=== PATIENT | female | born 1980 | race Caucasian/White ===

== ENCOUNTER 2018-02-17 11:29 | Emergency (ER) | payer OTHER ==
--- NOTE | 2018-02-17 11:46 | PDOC ---
History of Present Illness - General Chief Complaint: Pain Stated Complaint: RT SIDE RIB PAIN Time Seen by Provider: 02/17/18 11:33 - History of Present Illness Initial Comments: 02/17/18 11:41 37 F with no PMH presents to ED with R ribcage pain. Pt states that she sneezed hard yesterday and felt sudden pain in her R chest wall. Denies any F/C. States that it hurts to take a deep breath but denies any SOB. Denies L sided chest pain. Denies F/C or recent illness. Denies leg swelling. No recent travel/ immobilization. No h/o DVT/PE. Not on OCP or estrogen. Past History - Past Medical History Allergies/Adverse Reactions: Allergies Allergy/AdvReac Type Severity Reaction Status Date / Time No Known Drug Allergies Allergy Verified 02/17/18 11:31 Home Medications: Ambulatory Orders Oxycodone HCl/Acetaminophen [Percocet 5-325 mg Tablet] 1 tab PO TID PRN #9 tablet MDD 3 tabs 02/17/18 Anemia: No Asthma: No Cancer: No Cardiac Disorders: No CVA: No COPD: No CHF: No DVT: Yes (BILAT) Dementia: No Diabetes: No GI Disorders: No Disorders: No HTN: No Hypercholesterolemia: No Liver Disease: No Seizures: No Thyroid Disease: No - Reproductive History Cervical CA: No Dysfunctional Uterine Bleeding: No Ectopic : No Endometrial CA: No Polycystic Ovaries: No Therapeutic (s) & number: No Tubal Ligation: No - Suicide/Smoking/Psychosocial Hx Smoking Status: No Smoking History: Never smoked Number of Cigarettes Smoked Daily: 0 Hx Alcohol Use: No Drug/Substance Use Hx: No Substance Use Type: None Hx Substance Use Treatment: No Review of Systems - Review of Systems Comments:: 02/17/18 11:45 "GENERAL/CONSTITUTIONAL: No fever or chills. No weakness. HEAD, EYES, EARS, NOSE AND THROAT: No change in vision. No ear pain or discharge. No sore throat. CARDIOVASCULAR: + R sided chest wall pain RESPIRATORY: No cough, wheezing, or hemoptysis. GASTROINTESTINAL: No nausea, vomiting, diarrhea or constipation. GENITOURINARY: No dysuria, frequency, or change in urination. MUSCULOSKELETAL: No joint or muscle swelling or pain. No neck or back pain. SKIN: No rash NEUROLOGIC: No headache, vertigo, loss of consciousness, or change in strength/ sensation. ENDOCRINE: No increased thirst. No abnormal weight change. HEMATOLOGIC/LYMPHATIC: No anemia, easy bleeding, or history of blood clots. ALLERGIC/IMMUNOLOGIC: No hives or skin allergy. " *Physical Exam - Physical Exam Comments: 02/17/18 11:45 "GENERAL: Awake, alert, and fully oriented, in no acute distress HEAD: No signs of trauma EYES: PERRLA, EOMI, sclera anicteric, conjunctiva clear ENT: Auricles normal inspection, hearing grossly normal, nares patent, oropharynx clear without exudates. Moist mucosa NECK: Nontender, no stepoffs, Normal ROM, supple, no lymphadenopathy, JVD, or masses LUNGS: Breath sounds equal, clear to auscultation bilaterally. No wheezes, and no crackles CHEST: + tenderness lateral R sided chest wall, no crepitus or deformity HEART: Regular rate and rhythm, normal S1 and S2, no murmurs, rubs or gallops ABDOMEN: Soft, nontender, normoactive bowel sounds. No guarding, no rebound. No masses EXTREMITIES: Normal range of motion, no edema. No clubbing or cyanosis. No cords, erythema, or tenderness NEUROLOGICAL: Cranial nerves II through XII intact. 5/5 strength and sensation in all extremities, Normal speech, normal gait, normal cerebellar function SKIN: Warm, Dry, normal turgor, no rashes or lesions noted. " ED Treatment Course - RADIOLOGY Radiology Studies Ordered: Category Date Time Status CHEST PA & LAT [RAD] Stat Radiology 02/17/18 11:40 Ordered RIBS RIGHT SIDE [RAD] Stat Radiology 02/17/18 11:40 Ordered Medical Decision Making - Medical Decision Making 02/17/18 11:46 37 F with R sided chest wall pain after sneezing yesterday. Possible rib fx vs muscle strain. Will r/o PTX with x-ray. Pt with normal vitals, no DVT risk factors. PERC 0. ACS is extremely unlikely as pt's pain is R sided and very atypical, reproducible with palpation. - UPT - Rib/chest XR - Pain control 02/17/18 13:54 XR negative for acute fx or PTX Pt reassessed - now with significantly improved pain s/p percocet. Able to breathe more comfortably. Pt is well appearing, with normal vitals. Clinically stable for DC at this time. I discussed the physical exam findings, ancillary test results and final diagnoses with the patient. I answered all of the patient's questions. The patient was satisfied with the care received and felt comfortable with the discharge plan and treatment plan. The patient agrees to follow up with the primary care physician within 24-72 hours. *DC/Admit/Observation/Transfer Diagnosis at time of Disposition: Rib pain - Discharge Dispostion Disposition: HOME - Prescriptions Prescriptions: Oxycodone HCl/Acetaminophen [Percocet 5-325 mg Tablet] 1 tab PO TID PRN #9 tablet MDD 3 tabs PRN Reason: Pain - Referrals - Patient Instructions Printed Discharge Instructions: DI for Rib Contusion Additional Instructions: Use the incentive spirometer as directed to prevent lung infection. Take motrin or tylenol as needed for pain. If needed, you can take one percocet for severe pain. Do not use more than directed. If you experience worsening chest pain, difficulty breathing, fevers, or any other concerning symptoms, return to the ER immediately. Otherwise, follow up with your primary doctor within 1 week for a re-evaluation. - Post Discharge Activity Forms/Work/School Notes: Back to Work - Attestations Physician Attestion: 02/17/18 13:56 I, Dr. Max Agee MD, attest that this document has been prepared under my direction and personally reviewed by me in its entirety. I further attest, that it accurately reflects all work, treatment, procedures and medical decision -making performed by me.
[2018-02-17 12:31] VITALS: BP 132/108; PULSE 70; TEMP 99; BMI 29.2
== END 2018-02-17 14:01 | disposition home or self-care (01) ==
LOC: FER 11:29
DX: R07.81 Pleurodynia (principal); Z86.718 Personal history of other venous thrombosis and embolism
CPT/HCPCS: 71046-TC-FY; 71101-TC-RT-FY; 84703; 99282-25

== ENCOUNTER 2020-01-09 17:44 | Emergency (ER) | payer OTHER ==
[2020-01-09 18:37] VITALS: BP 114/75; PULSE 79; TEMP 98.3; BMI 31.4
--- NOTE | 2020-01-09 18:42 | PDOC ---
Documentation entered by Melisa Mcconnell SCRIBE, acting as scribe for Eduardo Rosario MD. Eduardo Rosario MD: This documentation has been prepared by the scribeJayesh Maria, SCRIBE, under my direction and personally reviewed by me in its entirety. I confirm that the documentation accurately reflects all work, treatment, procedures, and medical decision making performed by me. History of Present Illness - General Chief Complaint: Injury Stated Complaint: FELL DOWN STAIRS, 4 MONTHS History Source: Patient - History of Present Illness Initial Comments: 01/09/20 18:30 The patient is a 39 year old, 4 months , (A3) female with a significant past medical history of DVT who presents to the emergency department s/p mechanical fall. As per patient, she states was doing laundry, slipped down 3 steps and landed on her buttock. Patient endorses left buttock pain and left lower quadrant pain prompting her to the emergency room. Denies loss of consciousness.Denies trauma to her head. Denies cramping. Denies vaginal bleeding. Denies any other injuries. Past History - Past Medical History Allergies/Adverse Reactions: Allergies Allergy/AdvReac Type Severity Reaction Status Date / Time No Known Drug Allergies Allergy Verified 01/09/20 17:45 Home Medications: Ambulatory Orders NK [No Known Home Medication] 01/09/20 Anemia: No Asthma: No Cancer: No Cardiac Disorders: No CVA: No COPD: No CHF: No DVT: Yes (BILATERAL LEGS 2002) Dementia: No Diabetes: No GI Disorders: No Disorders: No HTN: No Hypercholesterolemia: No Liver Disease: No Seizures: No Thyroid Disease: No - Reproductive History Cervical CA: No Dysfunctional Uterine Bleeding: No Ectopic : No Endometrial CA: No Polycystic Ovaries: No Therapeutic (s) & number: No Tubal Ligation: No - Immunization History Immunization Up to Date: Yes - Psycho Social/Smoking Cessation Hx Smoking Status: No Smoking History: Unknown if ever smoked Have you smoked in the past 12 months: No Number of Cigarettes Smoked Daily: 0 Hx Alcohol Use: No Drug/Substance Use Hx: No Substance Use Type: None Hx Substance Use Treatment: No Review of Systems - Review of Systems Able to Perform ROS?: Yes Comments:: 01/09/20 18:31 A complete review of 10 out of 10 review of systems is taken and is negative apart from what is previously mentioned below and in the HPI. *Physical Exam - Physical Exam 01/09/20 18:31 Vitals: Triage Vital signs reviewed General Appearance: no acute distress, well nourished well developed, Head: Atraumatic, normocephalic Eyes: Pupils equal reactive round, extraocular movement intact Neck: Supple;No Nuchal rigidity Chest Wall: Nontender Cardiac: Regular rate and rhythm, no murmurs, no rubs, no gallops, Lungs: Clear to auscultation bilateral, good air movement bilaterally, Abdomen: Soft, nondistended, normal bowel sounds, nontender to palpation Extremities:+Left buttock pain. 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 Feels the baby moving Her examination was notable for left buttock pain no midline back tenderness or neurologic examination was nonfocal she was neurovascularly intact distally A bedside [id number] ultrasound was performed which demonstrated good movement and heart rate approximately 150 Patient was offered a formal ultrasound which she felt reassured seeing the baby moving she would prefer to follow-up tomorrow with her INSURANCE CLAIM AUDITOR given that she is 4 months this is reasonable at this point Findings, the need for follow-up and strict return instructions discussed with patient. Discharge - Discharge Information Problems reviewed: Yes Clinical Impression/Diagnosis: Back pain Qualifiers: Back pain location: low back pain Chronicity: acute Back pain laterality: left Sciatica presence: without sciatica Qualified Code(s): M54.5 - Low back pain Condition: Fair Disposition: HOME - Admission No - Follow up/Referral - Patient Discharge Instructions Patient Printed Discharge Instructions: Low Back Pain Additional Instructions: Ice low back 20 minutes on 20 minutes off. Okay to take [id number] Tylenol as directed on package. Return to the emergency department immediately for any severe abdominal pain cramping heavy vaginal bleeding Tomorrow morning follow-up with your INSURANCE CLAIM AUDITOR - Post Discharge Activity
== END 2020-01-09 18:55 | disposition home or self-care (01) ==
LOC: FER 17:44
DX: M54.5 Low back pain (principal); O26.892 Other specified pregnancy related conditions, second trimester; Z86.718 Personal history of other venous thrombosis and embolism
CPT/HCPCS: 99284-25

== ENCOUNTER 2020-05-31 02:20 | Inpatient (IN) | payer OTHER ==
[2020-05-31] MEDS ORDERED: OXYTOCIN 30 UNITS in 0.9% NS 30 UNIT/500 ML INFUS.BAG IVPB SCH (03:00)
[2020-05-31] MEDS: ELECTROLYTE-148 SOLN 1,000 ML IV SCH (03:00)
[2020-05-31 03:32] VITALS: BMI 36.6
[2020-05-31 03:56] LABS: INR 0.94 (0.83-1.09); PROTHROMBIN TIME (PATIENT) 11.1 SEC (9.7-13.0)
[2020-05-31 03:59] LABS: ACTIVATED PTT 24.3 SECONDS (25.2-36.5)
[2020-05-31 04:12] LABS: BASO % 1.2 % (0-2.0); BLOOD UREA NITROGEN 8.3 mg/dL (7-18); CALCIUM 8.6 mg/dL (8.5-10.1); CREATININE 0.5 mg/dL (0.55-1.3); EOS % 1.1 % (0-4.5); HEMATOCRIT 37.3 % (32.4-45.2); HEMOGLOBIN 12.6 GM/dL (10.7-15.3); LYMPH % 27.9 % (8-40); MCH 32.3 pg (25.7-33.7); MCHC 33.9 g/dl (32.0-36.0); MEAN CELL VOLUME 95.2 fl (80-96); MEAN PLT VOLUME 10.5 fl (7.5-11.1); MONO % 8.8 % (3.8-10.2); PLATELET COUNT 191 K/MM3 (134-434); POTASSIUM 4.8 mmol/L (3.5-5.1); RBC 3.92 M/mm3 (3.60-5.2); RDW 13.3 % (11.6-15.6); WHITE BLOOD COUNT 8.7 K/mm3 (4.0-10.0)
[2020-05-31] MEDS ORDERED: OXYTOCIN 30 UNITS in 0.9% NS 30 UNIT/500 ML INFUS.BAG IVPB ONE (04:17)
--- NOTE | 2020-05-31 06:27 | HP ---
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 Weeks Gestation by Dates: 38.6 ...EDC by Dates: 06/08/20 ...EDC by Sono: 06/17/20 Heme/Onc: Yes: Other (declines) Infectious Disease: Yes: Other (declines) Endocrine: Yes: Diabetes Mellitus (diet controlled) - Past Surgical History Past Surgical History: Yes: None Hx Myomectomy: No Hx Transabdominal Cerclage: No - Smoking History Smoking history: Never smoked Have you smoked in the past 12 months: No Aproximately how many cigarettes per day: 0 - Alcohol/Substance Use Hx Alcohol Use: No - Social History Usual Living Arrangement: Yes: With Spouse History of Recent Travel: No Home Medications - Allergies Allergies/Adverse Reactions: Allergies Allergy/AdvReac Type Severity Reaction Status Date / Time No Known Drug Allergies Allergy Verified 05/31/20 03:32 - Home Medications Home Medications: Ambulatory Orders Aspirin 81 mg PO DAILY 04/25/20 Folic Acid 1 mg PO TID 04/25/20 Vitamins (Sjr) - 1 tab PO DAILY 04/25/20 Review of Systems - Review of Systems Constitutional: reports: No Symptoms Eyes: reports: No Symptoms HENT: reports: No Symptoms Neck: reports: No Symptoms Cardiovascular: reports: No Symptoms Respiratory: reports: No Symptoms Gastrointestinal: reports: No Symptoms Genitourinary: reports: No Symptoms Breasts: reports: No Symptoms Reported Musculoskeletal: reports: No Symptoms Integumentary: reports: No Symptoms Neurological: reports: No Symptoms Endocrine: reports: No Symptoms Hematology/Lymphatic: reports: No Symptoms Psychiatric: reports: No Symptoms Physical Exam - Maternity Vital Signs: Vital Signs Temperature 98.2 F 05/31/20 05:00 Pulse Rate 72 05/31/20 05:00 Respiratory Rate 20 05/31/20 05:00 Blood Pressure 114/67 05/31/20 05:00 O2 Sat by Pulse Oximetry (%) 100 05/31/20 02:20 Constitutional: Yes: Obese Eyes: Yes: WNL HENT: Yes: WNL Neck: Yes: WNL Cardiovascular: Yes: WNL Lungs: Normal air movement Breast(s): Yes: WNL - Abdominal Exam/OB Fundal Height: 38 Number of Fetuses: Single Presentation: Vertex Contractions: No Regularity: Irritability Intensity: Unaware Monitor Mode: External Heart Rate Location: [facility] Category: I Accelerations: Non-Uniform Decelerations: None - Vaginal Exam/OB Vaginal Bleeding: No Speculum Exam: No Dilatation (cm): 2 cm Effacement (%): 80 Amniotic Membrane Status: Ruptured Nitrazine Test: Positive Amniotic Fluid: Yes: Clear Presentation: Vertex/Position Station: -2 - Physical Exam Musculoskeletal: Yes: WNL Extremities: Yes: WNL Edema: Yes Edema: LLE: Trace, RLE: Trace Deep Tendon Reflex Grade: Normal +2 ...Motor Strength: WNL Psychiatric: Yes: WNL - Labs Lab Results: CBC, BMP 05/31/20 03:00 05/31/20 03:00 Hemorrhage Risk Assessment - Risk Factors Medium Risk Factors: Yes: None High Risk Factors: Yes: None Risk Score: 1 Risk Level: Medium Risk Problem List - Problems (1) with 38 completed weeks gestation Code(s): Z3A.38 - 38 WEEKS GESTATION OF (2) PROM (premature rupture of membranes) Code(s): O42.90 - SERG ROM, 7TH0 BETW RUPT & ONST LABR, UNSP WEEKS OF GEST Qualifiers: PROM onset of labor timing: onset of labor within 24 hours of rupture (3) AMA (advanced maternal age) multigravida 35+ Code(s): O09.529 - SUPERVISION OF ELDERLY MULTIGRAVIDA, UNSPECIFIED TRIMESTER Qualifiers: Trimester: third trimester Qualified Code(s): O09.523 - Supervision of elderly multigravida, third trimester (4) Gestational diabetes Code(s): O24.419 - GESTATIONAL DIABETES MELLITUS IN , UNSP CONTROL Qualifiers: Gestational diabetes mellitus control: diet-controlled Trimester: third trimester Qualified Code(s): O24.410 - Gestational diabetes mellitus in , diet controlled (5) Gestational hypertension Code(s): O13.9 - GESTATIONAL HTN W/O SIGNIFICANT PROTEINURIA, UNSP TRIMESTER Qualifiers: Trimester: third trimester Qualified Code(s): O13.3 - Gestational [-induced] hypertension without significant proteinuria, third trimester Assessment/Plan admit for vaginal delivery, pitocin discussed , risks explained FHM monitor B.S monitor BP revaluate
[2020-05-31] MEDS ORDERED: ELECTROLYTE-148 SOLN 1,000 ML IV SCH (06:30)
[2020-05-31] MEDS ORDERED: BUTORPHANOL TARTRATE 1 MG/ML VIAL IVPB ONE (07:15)
[2020-05-31] MEDS ORDERED: PROMETHAZINE HCL 25 MG/1 ML VIAL IVPB ONE (07:15)
[2020-05-31] MEDS ORDERED: PROMETHAZINE HCL 25 MG/1 ML VIAL ONE (07:40)
[2020-05-31] MEDS ORDERED: BUTORPHANOL TARTRATE 1 MG/ML VIAL ONE ×2 (07:40)
[2020-05-31 09:56] LABS: POC NITRAZINE POS
[2020-05-31] MEDS ORDERED: PCA PUMP NR ONE (10:26)
[2020-05-31] MEDS ORDERED: FENTANYL/BUPIVACAINE/NS/PF - PCEA - 50 ML DISP.SYRIN EP ONE ×2 (10:26→15:04)
[2020-05-31] MEDS ORDERED: NALOXONE HCL 0.4 MG/ML VIAL IVPUSH PRN (10:26)
[2020-05-31] MEDS ORDERED: BUPIVACAINE HCL/PF 0.25% (2.5MG/ML) 10 ML VIAL ONE ×2 (10:28→15:34)
[2020-05-31] MEDS ORDERED: FENTANYL/BUPIVACAINE/NS/PF - PCEA - 50 ML DISP.SYRIN EP SCH (10:30)
--- NOTE | 2020-05-31 12:36 | PD.OB.PROG ---
Past Medical History - Primary Care Physician PCP:: Lg Brody Documenting Provider Type: Laborist - Admission Chief Complaint: none History Source: Patient Limitations to Obtaining History: No Limitations - Nursing Documentation Maternal Triage Index: Maternal Triage Index ( Priority 4, Non-urgent MFTI) Hemorrhage Risk Assessment: Risk Level Low Risk High Level Risk Factors for None Hemorrhage Medium Level Risk Factors for None of the above Hemorrhage Low Level Risk Factors for Angelo Pregnaancy Hemorrhage Nursing Documentation Reviewed: Yes - Past Medical History ...: 5 ...Para: 1 ...Term: 0 ...: 1 ...Spon : 3 ...Induced : 0 ...Living Children: 1 ...Multiple Gestation: 0 ...LMP: 09/02/19 ... Weeks Gestation by Dates: 38.6 ...EDC by Dates: 06/08/20 ...EDC by Sono: 06/17/20 - Past Surgical History Past Surgical History: Yes: None - Smoking History Smoking history: Never smoked Have you smoked in the past 12 months: No Aproximately how many cigarettes per day: 0 - Alcohol/Substance Use Hx Alcohol Use: No - Social History History of Recent Travel: No Physical Exam - Obstetrical Vital Signs: Vital Signs Temperature 98.3 F 05/31/20 10:00 Pulse Rate 79 05/31/20 11:45 Respiratory Rate 17 05/31/20 11:45 Blood Pressure 106/71 05/31/20 11:45 O2 Sat by Pulse Oximetry (%) 98 05/31/20 11:45 - Labs Lab Results: CBC, BMP 05/31/20 03:00 05/31/20 03:00 Assessment/Plan called by nurse upon PMD request to see this pt. following decel while being repositioned. pt. comfortable with epidural . no complaints. vss -af last fs: 99 at 10am fhr: 140. no decels x past 10 min. mod variability. prior to this pt had two variable decels (at time of repositioning per nurse). pt. was being repositioned due to some lates noted w lower BP following epidural placement. toco: uc's not registering as well on side, but are approx. q 3-4 min ve: def at this time (was 5 cm dilated at time of last exam ~ 11am per nurse) a/p 39 y/o P1 GDM on diet iup at term w srom early this am admitted and started on pitocin. received analgesia and then epidural. due to FHR characteristics (described above) Pitocin was stopped, iv bolus given and pt. repositioned. FHR responding to intrauterine resusc. cont. close monitoring. d/w Dr. Brody will sign out to next laborist as well.
--- NOTE | 2020-05-31 14:11 | PN ---
Progress Note (short form) - Note Progress Note: cx 6 cm 80 vx -1, fhr cat 1, irregular contraction , pitocin off, will start pitocin again and monitor FH Problem List - Problems (1) with 38 completed weeks gestation Code(s): Z3A.38 - 38 WEEKS GESTATION OF (2) PROM (premature rupture of membranes) Code(s): O42.90 - SERG ROM, 7TH0 BETW RUPT & ONST LABR, UNSP WEEKS OF GEST Qualifiers: PROM onset of labor timing: onset of labor within 24 hours of rupture (3) AMA (advanced maternal age) multigravida 35+ Code(s): O09.529 - SUPERVISION OF ELDERLY MULTIGRAVIDA, UNSPECIFIED TRIMESTER Qualifiers: Trimester: third trimester Qualified Code(s): O09.523 - Supervision of elderly multigravida, third trimester (4) Gestational diabetes Code(s): O24.419 - GESTATIONAL DIABETES MELLITUS IN , UNSP CONTROL Qualifiers: Gestational diabetes mellitus control: diet-controlled Trimester: third trimester Qualified Code(s): O24.410 - Gestational diabetes mellitus in , diet controlled (5) Gestational hypertension Code(s): O13.9 - GESTATIONAL HTN W/O SIGNIFICANT PROTEINURIA, UNSP TRIMESTER Qualifiers: Trimester: third trimester Qualified Code(s): O13.3 - Gestational [-induced] hypertension without significant proteinuria, third trimester
[2020-05-31] MEDS ORDERED: LIDOCAINE HCL 1% PRESERVATIVE FREE - 30ML VIAL ONE (17:33)
[2020-05-31] MEDS ORDERED: OXYTOCIN 20 UNITS in 0.9% NS 20 UNIT/1,000 ML INFUS.BAG IV ONE (17:33)
[2020-05-31] MEDS ORDERED: BENZOCAINE 28 GM HEMORRHOIDAL OINTMENT TP PRN (17:50)
[2020-05-31] MEDS ORDERED: BISACODYL 10 MG SUPP.RECT RC PRN (17:50)
[2020-05-31] MEDS ORDERED: BENZOCAINE 20% 57 GM BOTTLE TP PRN (17:50)
[2020-05-31] MEDS ORDERED: WITCH HAZEL 50% (TUCKS) 40 PAD/JAR PAD TP PRN (17:50)
[2020-05-31] MEDS ORDERED: METHYLERGONOVINE MALEATE 0.2 MG/1 ML AMP IM PRN (17:50)
--- NOTE | 2020-05-31 17:54 | PN ---
Delivery - Delivery Vaginal Delivery: Spontaneous Type of Anesthesia: Local, Epidural Episiotomy/Laceration: 1st degree (cx full, head delivered , nasopharynx suctioned , cord around neck 1 ,reduced , ant. and post, shoulder with no difficulty , live baby boy, 9/9 , placeta complete, 2 cm rt vaginal wall eparied with 2 interupted suture of 2 chromic , ebl 300cc , baby bonded with MOM , declined breast feeding, no complication) Delivery, Single - 1 Minute Total Score: 9 5 Minutes Total Score: 9 - [place] Feeding Plan Initial Plan: Elected not to breastfeed exclusively throughout hospitalization
[2020-05-31 18:00] LABS: CORD BASE EXCESS -4.2 mmol/L (0-2); CORD HCO3 23.8 mmHg (20-29); CORD PCO2 54.3 mmHg (30-78); CORD pH 7.26 (7.14-7.44)
[2020-05-31] MEDS ORDERED: D5W-LR W/ 20 UNITS OXYTOCIN 1,000 ML IV SCH (18:00)
[2020-05-31] MEDS ORDERED: OXYTOCIN 20 UNITS in 0.9% NS 20 UNIT/1,000 ML INFUS.BAG IV SCH (18:00)
[2020-05-31 18:01] LABS: CORD BASE EXCESS -1.5 mmol/L (0-2); CORD HCO3 24.5 mmHg (20-29); CORD PCO2 45.9 mmHg (30-78); CORD pH 7.346 (7.14-7.44)
[2020-05-31] MEDS: IBUPROFEN 600 MG TABLET (FP) PO PRN ×2 (19:26→23:48)
[2020-05-31] MEDS: ACETAMINOPHEN 325 MG TABLET (FP) PO PRN ×2 (19:26→23:47)
[2020-05-31] MEDS ORDERED: IBUPROFEN 600 MG TABLET (FP) PO ONE (19:28)
[2020-05-31] MEDS ORDERED: ACETAMINOPHEN 325 MG TABLET (FP) ONE (19:28)
[2020-06-01] MEDS: ELECTROLYTE-148 SOLN 1,000 ML IV SCH (03:29)
[2020-06-01] MEDS: IBUPROFEN 600 MG TABLET (FP) PO PRN ×2 (06:40→09:59)
[2020-06-01] MEDS: ACETAMINOPHEN 325 MG TABLET (FP) PO PRN ×2 (06:40→09:59)
[2020-06-01] MEDS ORDERED: FERROUS SO4 325 MG TABLET (FP) PO SCH (08:00)
[2020-06-01 08:24] LABS: BASO % 0.6 % (0-2.0); EOS % 0.9 % (0-4.5); HEMATOCRIT 35.9 % (32.4-45.2); HEMOGLOBIN 11.9 GM/dL (10.7-15.3); LYMPH % 16.1 % (8-40); MCH 31.4 pg (25.7-33.7); MCHC 33.2 g/dl (32.0-36.0); MEAN CELL VOLUME 94.7 fl (80-96); MEAN PLT VOLUME 9.6 fl (7.5-11.1); MONO % 5.9 % (3.8-10.2); NEUT % 76.5 % (42.8-82.8); PLATELET COUNT 204 K/MM3 (134-434); RBC 3.79 M/mm3 (3.60-5.2); RDW 13.4 % (11.6-15.6); WHITE BLOOD COUNT 13.5 K/mm3 (4.0-10.0)
[2020-06-01] MEDS ORDERED: PRENATAL VITAMINS W/ FOLIC ACID TABLET (FP) PO SCH (10:00)
--- NOTE | 2020-06-01 10:57 | DS ---
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: Vital Signs Temperature 98.3 F 05/31/20 21:51 Pulse Rate 90 05/31/20 21:51 Respiratory Rate 20 05/31/20 21:51 Blood Pressure 122/73 05/31/20 21:51 O2 Sat by Pulse Oximetry (%) 100 05/31/20 19:15 Constitutional: Yes: Well Nourished, No Distress, Calm Eyes: Yes: WNL, Conjunctiva Clear, EOM Intact HENT: Yes: WNL, Atraumatic, Normocephalic Neck: Yes: WNL, Supple, Trachea Midline Cardiovascular: Yes: WNL, Regular Rate and Rhythm Respiratory: Yes: WNL, Regular, CTA Bilaterally Gastrointestinal: Yes: WNL ...Rectal Exam: Yes: WNL Renal/: Yes: WNL ....Post : Yes: Uterus firm, Uterus non-tender, Slight lochia rubra Breast(s): Yes: WNL Musculoskeletal: Yes: WNL Extremities: Yes: WNL Edema: No Integumentary: Yes: WNL Neurological: Yes: WNL, Alert, Oriented ...Motor Strength: WNL Psychiatric: Yes: WNL, Alert, Oriented Labs: CBC, BMP 06/01/20 08:05 05/31/20 03:00 Delivery - Delivery Vaginal Delivery: Spontaneous Type of Anesthesia: Local, Epidural Episiotomy/Laceration: 1st degree (cx full, head delivered , nasopharynx suctioned , cord around neck 1 ,reduced , ant. and post, shoulder with no difficulty , live baby boy, 9/9 , placeta complete, 2 cm rt vaginal wall eparied with 2 interupted suture of 2 chromic , ebl 300cc , baby bonded with MOM , declined breast feeding, no complication) EBL (cc): 300 Delivery, Single - Stages of Labor Date 1st Stage Initiatied: 05/31/20 Time 1st Stage Initiated: 07:45 Date 2nd Stage Initiated: 05/31/20 Time 2nd Stage Initiated: 17:15 Date of Delivery: 05/31/20 Time of Delivery: 17:31 Time Placenta Delivered: 17:35 Placenta: Yes: Spontaneous - Condition of Infant Oral And Maxillofacial Surgery Resident/Analog Ic Design Architect Present: No Gender: Male Weight: 6 lb 5 oz Position: Left, OA Total Hours ROM (Hrs/Mins): 15Hrs/25Mins - 1 Minute Total Score: 9 5 Minutes Total Score: 9 - [place] Feeding Plan Initial Plan: Elected not to breastfeed exclusively throughout hospitalization Discharge Summary Reason For Visit: LABOR Current Active Problems AMA (advanced maternal age) multigravida 35+ (Acute) Gestational diabetes (Acute) Gestational hypertension (Acute) PROM (premature rupture of membranes) (Acute) with 38 completed weeks gestation (Acute) Procedures: Principal: Hospital Course: no complication Plan of Treatment: follow up [facility] care 4 weeks, do 75 gm GCT 6 weeks pp, if fever, heavy vaginal bleeding, pain call low carb diet Condition: Good - Instructions Diet, Activity, Other Instructions: regular diet, no intercourse, follow up [facility] care 4 weeks, if fever, heavy vaginal bleeding , pain call MD Referrals: Lg Brody MD [Staff Physician] - Disposition: HOME - Home Medications Comprehensive Discharge Medication List: Ambulatory Orders Aspirin 81 mg PO DAILY 04/25/20 Folic Acid 1 mg PO TID 04/25/20 Vitamins (Sjr) - 1 tab PO DAILY 04/25/20 Ibuprofen [Motrin -] 600 mg PO QID #28 tablet 06/01/20
[2020-06-01 12:30] VITALS: BP 111/78; PULSE 86; TEMP 98
[2020-06-01] MEDS ORDERED: SENNOSIDES/DOCUSATE COMBO (SENNA PLUS) TABLET (UD) PO PRN (22:00)
== END 2020-06-01 15:00 | disposition home or self-care (01) | DRG 560 ==
LOC: JLDR 02:20 → J3W 21:38
PROVIDERS: ADMIT Obstetrics & Gynecology; ATTEND Obstetrics & Gynecology
PROC: 10E0XZZ Delivery of Products of Conception, External Approach (ICD-10-PCS; principal; 2020-05-31)
PROC: 0HQ9XZZ Repair Perineum Skin, External Approach (ICD-10-PCS; 2020-05-31)
DX: O42.02 Full-term premature rupture of membranes, onset of labor within 24 hours of rupture (principal); O24.420 Gestational diabetes mellitus in childbirth, diet controlled; O13.3 Gestational [pregnancy-induced] hypertension without significant proteinuria, third trimester; O70.0 First degree perineal laceration during delivery; O69.1XX0 Labor and delivery complicated by cord around neck, with compression, not applicable or unspecified; Z3A.38 38 weeks gestation of pregnancy; Z37.0 Single live birth
CPT/HCPCS: 36415; 36600; 59409; 80048; 82803; 82962; 83986-QW; 85025; 85610; 85730; 86762; 86780; 86850; 86900; 86901; 87340; U0003

== ENCOUNTER 2022-12-01 21:27 | Emergency (ER) | payer OTHER ==
[2022-12-01 21:37] VITALS: BP 152/94; PULSE 86; RESP 20; TEMP 98.2; BMI 32.1
[2022-12-02] MEDS ORDERED: SODIUM CHLORIDE 1,000 ML IV STA (00:29)
[2022-12-02] MEDS ORDERED: KETOROLAC TROMETHAMINE 30 MG/1 ML VIAL IVPUSH ONE (00:39)
[2022-12-02] MEDS ORDERED: KETOROLAC TROMETHAMINE 30 MG/1 ML VIAL IM ONE (00:59)
[2022-12-02] MEDS ORDERED: KETOROLAC TROMETHAMINE 30 MG/1 ML VIAL ONE (01:31)
== END 2022-12-02 03:00 | disposition left against medical advice (07) ==
LOC: JER 21:27
DX: M79.605 Pain in left leg (principal); R51.9 Headache, unspecified
CPT/HCPCS: 70450-TC; 93971-TC; 99285-25

== ENCOUNTER 2023-05-04 22:22 | Emergency (ER) | payer OTHER ==
[2023-05-04 22:26] VITALS: BP 152/79; PULSE 86; RESP 17; TEMP 97.6; BMI 32.1
== END 2023-05-05 01:45 | disposition home or self-care (01) ==
LOC: JER 22:22
DX: M79.604 Pain in right leg (principal); M54.17 Radiculopathy, lumbosacral region; M54.31 Sciatica, right side
CPT/HCPCS: 93970-TC; 99284-25